=== PATIENT | female | born 1950 | race African-American/Black ===

== ENCOUNTER → 2021-11-29 | Day surgery (SDC) | payer MEDICARE, OTHER ==
[~2021-11-29] VITALS: Ht 162.6 cm; Wt 86.2 kg
[~2021-11-29] MED LIST: ELAVIL25 MG PO; LIPITOR40 MG PO; LISINOPRIL30 MG PO; MOTRIN600 MG PO; TAPAZOLE5 MG PO; TRAMADOL HCL50 MG PO; VITAMIN D310 MCG PO
[2021-11-29 10:40] LABS: HGB 13.9 g/dl (12.5-16.0); MCH 26.5 pg (25.0-31.0); MCHC 31.6 g/dL (32.0-36.0); MCV 83.8 fL (78.0-100.0); MPV 11.1 fL (6.0-9.5); RBC 5.25 M/uL (4.20-5.40); RDW 14.3 % (11.5-14.0); WBC 8.7 K/uL (4.0-10.5)
[2021-11-29 10:57] LABS: ALBUMIN 4.2 g/dL (3.4-5.0); BILIRUBIN - TOTAL 0.4 mg/dL (0.2-1.0); BUN/CREAT RATIO (CALC) 13.9 RATIO; CREATININE 0.72 mg/dL (0.51-0.95); GLOBULIN (CALCULATION) 3.8 g/dL; POTASSIUM 3.9 mmol/L (3.5-5.1)
== END | disposition home or self-care (01) ==
LOC: FAS 09:37
PROVIDERS: Orthopaedic Surgery
DX: S76.111A Strain of right quadriceps muscle, fascia and tendon, initial encounter (principal); S86.811A Strain of other muscle(s) and tendon(s) at lower leg level, right leg, initial encounter; M94.261 Chondromalacia, right knee; S83.411A Sprain of medial collateral ligament of right knee, initial encounter; E05.20 Thyrotoxicosis with toxic multinodular goiter without thyrotoxic crisis or storm; I10 Essential (primary) hypertension; Z87.891 Personal history of nicotine dependence; X58.XXXA Exposure to other specified factors, initial encounter
CPT/HCPCS: 36415; 71045; 80053; 93005; J0690; J1100; J1170; J2250; J2405; J2704; J2795; J3010; J7120